=== PATIENT | female | born 1960 | race Caucasian/White ===

== ENCOUNTER 2017-09-21 14:28 | Emergency (ER) | payer MEDICAID, OTHER ==
[~2017-09-21] VITALS: Ht 170.2 cm; Wt 59.9 kg
[~2017-09-21 14:28] MED LIST: CLON-528 PO
[2017-09-21] MEDS ORDERED: thiamine 100mg/ml 2ml inj. IV ONE (14:50)
[2017-09-21] MEDS ORDERED: normal saline 1000ML IV soln IV ONE (14:50)
[2017-09-21] MEDS ORDERED: folic acid 1mg/0.2ml inj IV ONE (14:50)
[2017-09-21 15:17] LABS: BASOPHILS % (AUTO) 0.2 % (0-1); EOSINOPHILS # (AUTO) 0.1 X10'3 (0-0.9); EOSINOPHILS % (AUTO) 0.9 % (0-6); HEMATOCRIT 37.8 % (35.0-45.0); HEMOGLOBIN 12.8 g/dl (12.0-16.0); LYMPHOCYTES # (AUTO) 3.3 X10'3 (1.1-4.8); LYMPHOCYTES % (AUTO) 27.3 % (21-51); MEAN CORPUSCULAR VOLUME 94.2 FL (78-98); MEAN PLATELET VOLUME 6.9 FL (7.4-10.4); MONOCYTES # (AUTO) 0.8 X10'3 (0-0.9); MONOCYTES % (AUTO) 6.2 % (2-12); NEUTROPHILS % (AUTO) 65.4 % (42-75); PLATELET COUNT 434 X10'3 (140-440); RED BLOOD COUNT 4.01 X10'6 (4.20-5.60); RED CELL DISTRIBUTION WIDTH 15.3 % (11.5-14.5); WHITE BLOOD COUNT 12.3 X10'3 (4.5-11.0)
[2017-09-21] MEDS ORDERED: LORazepam 2 mg/ml vial IV ONE ×2 (15:25→16:45)
[2017-09-21 15:32] LABS: ALANINE AMINOTRANSFERASE 57 U/L (12-78); ALBUMIN 3.5 G/DL (3.4-5.0); ALBUMIN/GLOBULIN RATIO 0.9 (1.1-1.5); ALKALINE PHOSPHATASE 54 IU/L (46-116); ANION GAP 9 (8-16); ASPARTATE AMINO TRANSFERASE 39 U/L (10-37); BILIRUBIN,TOTAL 0.1 MG/DL (0.1-1.0); BLOOD UREA NITROGEN 11 MG/DL (7-18); BUN/CREATININE RATIO 15.5 (6.6-38.0); CALCIUM 9.1 MG/DL (8.5-10.1); CHLORIDE 107 MMOL/L (99-107); CREATINE KINASE 168 U/L (26-192); CREATININE 0.71 MG/DL (0.40-0.90); GLUCOSE 93 MG/DL (70-104); MAGNESIUM 2.1 MG/DL (1.5-2.4); POTASSIUM 4.2 MMOL/L (3.5-5.1); SODIUM 145 MMOL/L (135-145); TOTAL CARBON DIOXIDE 29.2 MMOL/L (24-32); TOTAL PROTEIN 7.3 G/DL (6.4-8.2); eGFR 85 ML/MIN
[2017-09-21 16:07] LABS: CLARITY,URINE CLEAR (Clear); COLOR,URINE YELLOW (Yellow); GLUCOSE, URINE NEGATIVE (Neg); KETONES,URINE NEGATIVE (Neg); LEUKOCYTE ESTERASE ,URINE NEGATIVE (Neg); NITRITES, URINE NEGATIVE (Neg); OCCULT BLOOD,URINE TRACE-INTACT (Neg); PROTEIN,URINE NEGATIVE (Neg); UROBILINOGEN,URINE 0.2 E.U/dL (0.2-1.0)
[2017-09-21 16:08] LABS: UA COLLECTION TYPE CLN CATCH MIDSTREAM
[2017-09-21 16:14] LABS: URINE AMPHETAMINE SCREEN NEGATIVE (Neg); URINE BARBITUATE SCREEN NEGATIVE (Neg); URINE BENZODIAZEPINES SCREEN NEGATIVE (Neg); URINE CANNABINOID SCREEN NEGATIVE (Neg); URINE COCAINE SCREEN NEGATIVE (Neg); URINE METHADONE SCREEN NEGATIVE (Neg); URINE OPIATE SCREEN NEGATIVE (Neg); URINE PHENCYCLIDINE SCREEN NEGATIVE (Neg)
[2017-09-21 16:16] LABS: ETHANOL 0.117 GM/DL (0.0-0.010)
[2017-09-21 16:17] LABS: BACTERIA,URINE NONE SEEN /HPF (Neg); RBC,URINE 0-2 /HPF (0-2); SQUAMOUS EPITHELIAL CELL,UR FEW /LPF (FEW); WBC,URINE 0-4 /HPF (0-4)
[2017-09-21 17:00] VITALS: BP 130/78
== END 2017-09-21 17:41 | disposition home or self-care (01) ==
LOC: ER 14:28
DX: F10.129 Alcohol abuse with intoxication, unspecified (principal); F13.10 Sedative, hypnotic or anxiolytic abuse, uncomplicated; Z79.899 Other long term (current) drug therapy; Y90.0 Blood alcohol level of less than 20 mg/100 ml
CPT/HCPCS: 36415; 80053; 80305; 80320; 81001; 82550; 82948; 83605; 83735; 85025; 93005; 96361; 96374; 96375; 96376; 99285; J2060; J3411; J3490; J7030

== ENCOUNTER 2017-09-29 14:49 | Emergency (ER) | payer OTHER ==
[~2017-09-29] VITALS: Ht 170.2 cm; Wt 58.0 kg
[2017-09-29 15:35] LABS: BASOPHILS % (AUTO) 0.5 % (0-1); EOSINOPHILS # (AUTO) 0.1 X10'3 (0-0.9); EOSINOPHILS % (AUTO) 0.8 % (0-6); HEMATOCRIT 40.1 % (35.0-45.0); HEMOGLOBIN 13.5 g/dl (12.0-16.0); LYMPHOCYTES # (AUTO) 3.1 X10'3 (1.1-4.8); LYMPHOCYTES % (AUTO) 29.9 % (21-51); MEAN CORPUSCULAR HEMOGLOBIN 31.5 PG (27.0-31.0); MEAN CORPUSCULAR HGB CONC 33.6 % (33.0-36.5); MEAN CORPUSCULAR VOLUME 93.7 FL (78-98); MEAN PLATELET VOLUME 6.9 FL (7.4-10.4); MONOCYTES # (AUTO) 0.9 X10'3 (0-0.9); NEUTROPHILS # (AUTO) 6.2 X10'3 (1.8-7.7); NEUTROPHILS % (AUTO) 59.8 % (42-75); PLATELET COUNT 385 X10'3 (140-440); RED BLOOD COUNT 4.28 X10'6 (4.20-5.60); RED CELL DISTRIBUTION WIDTH 16.4 % (11.5-14.5); WHITE BLOOD COUNT 10.3 X10'3 (4.5-11.0)
[2017-09-29] MEDS ORDERED: ondansetron/PF 4mg/2ml inj IV ONE (15:40)
[2017-09-29] MEDS ORDERED: normal saline 1000ML IV soln IVB ONE (15:40)
[2017-09-29] MEDS ORDERED: famotidine/PF 10 mg/ml inj IV ONE (15:40)
[2017-09-29] MEDS ORDERED: LORazepam 2 mg/ml vial IV ONE (15:40)
[2017-09-29 15:57] LABS: ANION GAP 8 (8-16); BLOOD UREA NITROGEN 17 MG/DL (7-18); BUN/CREATININE RATIO 26.6 (6.6-38.0); CHLORIDE 106 MMOL/L (99-107); CREATININE 0.64 MG/DL (0.40-0.90); GLUCOSE 77 MG/DL (70-104); POTASSIUM 4.2 MMOL/L (3.5-5.1); SODIUM 144 MMOL/L (135-145); TOTAL CARBON DIOXIDE 30.1 MMOL/L (24-32); eGFR > 90 ML/MIN
[2017-09-29 15:58] LABS: ALANINE AMINOTRANSFERASE 45 U/L (12-78); ALBUMIN 3.8 G/DL (3.4-5.0); ALKALINE PHOSPHATASE 71 IU/L (46-116); ASPARTATE AMINO TRANSFERASE 23 U/L (10-37); BILIRUBIN,TOTAL 0.2 MG/DL (0.1-1.0); CALCIUM 8.9 MG/DL (8.5-10.1); CREATINE KINASE 75 U/L (26-192); TOTAL PROTEIN 7.7 G/DL (6.4-8.2)
[2017-09-29 16:01] VITALS: BP 128/64
[2017-09-29] MEDS ORDERED: CHLO25CA10 PO (16:40)
== END 2017-09-29 17:17 | disposition home or self-care (01) ==
LOC: ER 14:50
DX: F10.239 Alcohol dependence with withdrawal, unspecified (principal); F17.200 Nicotine dependence, unspecified, uncomplicated; Y90.9 Presence of alcohol in blood, level not specified
CPT/HCPCS: 36415; 80053; 82550; 84484; 85025; 93005; 96361; 96374; 96375; 99285; J2060; J2405; J3490; J7030

== ENCOUNTER 2017-10-06 20:10 | Emergency (ER) | payer OTHER ==
[~2017-10-06] VITALS: Ht 5535.5 cm; Wt 64.6 kg
[~2017-10-06 20:10] MED LIST changes: +CHLO25CA10 PO
[2017-10-06] MEDS ORDERED: LORazepam 1 MG tablet PO ONE ×2 (22:00→22:05)
[2017-10-06 22:17] LABS: URINE HCG NEGATIVE (NEG)
[2017-10-06 22:20] LABS: COLOR,URINE Yellow (Yellow); GLUCOSE, URINE Negative (Neg); KETONES,URINE Negative (Neg); LEUKOCYTE ESTERASE ,URINE Small (Neg); NITRITES, URINE Negative (Neg); OCCULT BLOOD,URINE Small (Neg); PROTEIN,URINE Negative (Neg); UROBILINOGEN,URINE 0.2 E.U/dL (0.2-1.0)
[2017-10-06 22:21] LABS: URINE AMPHETAMINE SCREEN NEGATIVE (Neg); URINE BARBITUATE SCREEN NEGATIVE (Neg); URINE BENZODIAZEPINES SCREEN POSITIVE (Neg); URINE CANNABINOID SCREEN NEGATIVE (Neg); URINE COCAINE SCREEN NEGATIVE (Neg); URINE METHADONE SCREEN NEGATIVE (Neg); URINE OPIATE SCREEN NEGATIVE (Neg); URINE PHENCYCLIDINE SCREEN NEGATIVE (Neg)
[2017-10-06 22:22] LABS: CLARITY,URINE Slightly Cloudy (Clear); UA COLLECTION TYPE CLN CATCH MIDSTREAM
[2017-10-06 22:32] LABS: BACTERIA,URINE 2+ /HPF (Neg); MUCUS STRANDS MODERATE /LPF (Neg); RBC,URINE 0-2 /HPF (0-2); SQUAMOUS EPITHELIAL CELL,UR MANY /LPF (FEW); WBC,URINE 0-4 /HPF (0-4)
[2017-10-06 22:35] LABS: BASOPHILS % (AUTO) 0.3 % (0-1); EOSINOPHILS # (AUTO) 0.2 X10'3 (0-0.9); EOSINOPHILS % (AUTO) 1.7 % (0-6); HEMATOCRIT 37.8 % (35.0-45.0); HEMOGLOBIN 13.3 g/dl (12.0-16.0); LYMPHOCYTES # (AUTO) 3.7 X10'3 (1.1-4.8); LYMPHOCYTES % (AUTO) 34.2 % (21-51); MEAN CORPUSCULAR HEMOGLOBIN 32.9 PG (27.0-31.0); MEAN CORPUSCULAR HGB CONC 35.3 % (33.0-36.5); MEAN CORPUSCULAR VOLUME 93.3 FL (78-98); MONOCYTES # (AUTO) 0.9 X10'3 (0-0.9); MONOCYTES % (AUTO) 8.8 % (2-12); NEUTROPHILS # (AUTO) 5.9 X10'3 (1.8-7.7); PLATELET COUNT 336 X10'3 (140-440); RED BLOOD COUNT 4.05 X10'6 (4.20-5.60); WHITE BLOOD COUNT 10.7 X10'3 (4.5-11.0)
[2017-10-06 22:46] LABS: ETHANOL 0.048 GM/DL (0.0-0.010); TOTAL CARBON DIOXIDE 32.5 MMOL/L (24-32)
[2017-10-06 23:18] LABS: ALANINE AMINOTRANSFERASE 53 U/L (12-78); ALBUMIN 3.6 G/DL (3.4-5.0); ALBUMIN/GLOBULIN RATIO 0.9 (1.1-1.5); ALKALINE PHOSPHATASE 83 IU/L (46-116); ANION GAP 7 (8-16); ASPARTATE AMINO TRANSFERASE 54 U/L (10-37); BILIRUBIN,TOTAL 0.1 MG/DL (0.1-1.0); BLOOD UREA NITROGEN 16 MG/DL (7-18); BUN/CREATININE RATIO 24.2 (6.6-38.0); CALCIUM 8.5 MG/DL (8.5-10.1); CHLORIDE 104 MMOL/L (99-107); CREATININE 0.66 MG/DL (0.40-0.90); GLUCOSE 87 MG/DL (70-104); SODIUM 143 MMOL/L (135-145); TOTAL PROTEIN 7.4 G/DL (6.4-8.2); eGFR > 90 ML/MIN
[2017-10-06 23:20] LABS: POTASSIUM 3.7 MMOL/L (3.5-5.1)
[2017-10-07] MEDS ORDERED: chlordiazePOXIDE 25mg capsule PO ONE (05:25)
[2017-10-07] MEDS ORDERED: LORazepam 2 mg/ml vial IV PRN (08:20)
[2017-10-07] MEDS ORDERED: folic acid 1mg tablet PO ONE (08:25)
[2017-10-07] MEDS ORDERED: LORazepam 2 mg/ml vial IM PRN (08:53)
[2017-10-07] MEDS: multivitamins, therapeutics tablet PO SCH (09:02)
[2017-10-07] MEDS: LORazepam 0.5 MG tablet PO PRN ×3 (09:03→17:28)
[2017-10-07] MEDS: PARoxetine 20mg tablet PO SCH (12:12)
[2017-10-07] MEDS ORDERED: ziprasidone IM 20mg inj **IM only IM ONE (19:50)
[2017-10-08] MEDS: PARoxetine 20mg tablet PO SCH (07:48)
[2017-10-08] MEDS: multivitamins, therapeutics tablet PO SCH (07:48)
[2017-10-08] MEDS: LORazepam 0.5 MG tablet PO PRN ×2 (07:50→12:34)
[2017-10-08] MEDS ORDERED: nicotine prolacrilex 2mg gum BC PRN (08:05)
[2017-10-08] MEDS: docusate sod 100mg capsule PO PRN (08:38)
[2017-10-08] MEDS ORDERED: ziprasidone 20mg capsule PO ONE (19:40)
[2017-10-09] MEDS: multivitamins, therapeutics tablet PO SCH (07:17)
[2017-10-09] MEDS: PARoxetine 20mg tablet PO SCH (07:18)
[2017-10-09] MEDS: docusate sod 100mg capsule PO PRN (07:18)
[2017-10-09] MEDS: LORazepam 0.5 MG tablet PO PRN ×3 (07:19→20:31)
[2017-10-09] MEDS ORDERED: CLON-527 PO (10:07)
[2017-10-09] MEDS ORDERED: PARO10TA85 PO (10:07)
[2017-10-09] MEDS ORDERED: ZOLP5TAB2 PO (10:17)
[2017-10-09] MEDS ORDERED: acetaminophen w/codeine (30MG) #3 tablet PO PRN (16:40)
[2017-10-09] MEDS: clonazePAM 0.5mg tablet PO SCH (20:30)
[2017-10-09] MEDS: zolpidem 5mg tablet PO PRN (20:31)
[2017-10-10] MEDS: LORazepam 0.5 MG tablet PO PRN (05:24)
[2017-10-10] MEDS: clonazePAM 0.5mg tablet PO SCH ×2 (08:10→20:30)
[2017-10-10] MEDS: multivitamins, therapeutics tablet PO SCH (08:10)
[2017-10-10] MEDS: PARoxetine 20mg tablet PO SCH (08:10)
[2017-10-10] MEDS: magnesium hydroxide 30ml (MOM) UD suspension PO PRN ×2 (08:10→18:17)
[2017-10-10] MEDS: chlordiazePOXIDE 25mg capsule PO SCH ×2 (13:27→20:31)
[2017-10-10] MEDS: docusate sod 100mg capsule PO PRN (13:28)
[2017-10-10] MEDS: zolpidem 5mg tablet PO PRN (20:31)
[2017-10-10] MEDS ORDERED: chlordiazePOXIDE 25mg capsule PO ONE (21:00)
[2017-10-11] MEDS: docusate sod 100mg capsule PO PRN ×2 (07:34→20:14)
[2017-10-11] MEDS: PARoxetine 20mg tablet PO SCH (07:34)
[2017-10-11] MEDS: clonazePAM 0.5mg tablet PO SCH ×2 (07:34→20:14)
[2017-10-11] MEDS: magnesium hydroxide 30ml (MOM) UD suspension PO PRN ×2 (07:34→20:14)
[2017-10-11] MEDS: multivitamins, therapeutics tablet PO SCH (07:35)
[2017-10-11] MEDS ORDERED: polyethylene glycol 3350 17gm powd pack PO PRN (07:55)
[2017-10-11] MEDS: LORazepam 1 MG tablet PO PRN ×3 (08:16→21:39)
[2017-10-11] MEDS ORDERED: clonazePAM 1mg tablet PO ONE (12:25)
[2017-10-11] MEDS: zolpidem 5mg tablet PO PRN (20:14)
[2017-10-12] MEDS: LORazepam 1 MG tablet PO PRN ×2 (06:39→12:05)
[2017-10-12] MEDS: docusate sod 100mg capsule PO PRN (08:11)
[2017-10-12] MEDS: PARoxetine 20mg tablet PO SCH (08:11)
[2017-10-12] MEDS: clonazePAM 0.5mg tablet PO SCH (08:11)
[2017-10-12] MEDS: multivitamins, therapeutics tablet PO SCH (08:11)
[2017-10-12] MEDS: magnesium hydroxide 30ml (MOM) UD suspension PO PRN (08:11)
[2017-10-12] MEDS ORDERED: nicotine 7mg patch - 24hr TD SCH (09:55)
[2017-10-12] MEDS ORDERED: LORazepam 1 MG tablet PO ONE (15:15)
[2017-10-12] MEDS: zolpidem 5mg tablet PO PRN (20:30)
[2017-10-12] MEDS: clonazePAM 1mg tablet PO SCH (20:30)
[2017-10-13] MEDS: LORazepam 1 MG tablet PO PRN ×2 (05:54→12:17)
[2017-10-13] MEDS: clonazePAM 1mg tablet PO SCH ×2 (07:28→21:00)
[2017-10-13] MEDS: PARoxetine 20mg tablet PO SCH (07:28)
[2017-10-13] MEDS: multivitamins, therapeutics tablet PO SCH (07:28)
[2017-10-13] MEDS: nicotine 14mg patch - 24hr TD SCH (12:14)
[2017-10-13] MEDS ORDERED: clonazePAM 1mg tablet PO ONE (14:05)
[2017-10-13] MEDS: zolpidem 5mg tablet PO PRN (20:53)
[2017-10-14] MEDS: multivitamins, therapeutics tablet PO SCH (08:01)
[2017-10-14] MEDS: clonazePAM 1mg tablet PO SCH ×2 (08:01→12:50)
[2017-10-14] MEDS: nicotine 14mg patch - 24hr TD SCH (08:02)
[2017-10-14] MEDS: PARoxetine 20mg tablet PO SCH (08:08)
[2017-10-14 15:19] VITALS: BP 105/72
== END 2017-10-14 15:22 ==
LOC: ER 20:11
DX: R45.851 Suicidal ideations (principal); F10.239 Alcohol dependence with withdrawal, unspecified; F17.210 Nicotine dependence, cigarettes, uncomplicated; F41.9 Anxiety disorder, unspecified; F32.9 Major depressive disorder, single episode, unspecified; Z79.899 Other long term (current) drug therapy
CPT/HCPCS: 36415; 80053; 80305; 80320; 81001; 81025; 84443; 85025; 96372; 99285; J3486; 99284

== ENCOUNTER 2017-11-21 11:57 | Emergency (ER) | payer OTHER ==
[~2017-11-21] VITALS: Ht 170.2 cm; Wt 68.0 kg
[~2017-11-21 11:57] MED LIST changes: -CHLO25CA10 PO; +CLON-527 PO; -CLON-528 PO; +PARO10TA85 PO; +ZOLP5TAB2 PO
[2017-11-21 13:58] LABS: BASOPHILS # (AUTO) 0.1 X10'3 (0-0.2); BASOPHILS % (AUTO) 0.6 % (0-1); EOSINOPHILS # (AUTO) 0.3 X10'3 (0-0.9); EOSINOPHILS % (AUTO) 2.4 % (0-6); HEMATOCRIT 44.1 % (35.0-45.0); HEMOGLOBIN 14.9 g/dl (12.0-16.0); LYMPHOCYTES # (AUTO) 2.3 X10'3 (1.1-4.8); LYMPHOCYTES % (AUTO) 20.9 % (21-51); MEAN CORPUSCULAR HEMOGLOBIN 30.8 PG (27.0-31.0); MEAN CORPUSCULAR HGB CONC 33.7 % (33.0-36.5); MEAN CORPUSCULAR VOLUME 91.5 FL (78-98); MEAN PLATELET VOLUME 7.3 FL (7.4-10.4); MONOCYTES # (AUTO) 0.6 X10'3 (0-0.9); MONOCYTES % (AUTO) 5.6 % (2-12); NEUTROPHILS # (AUTO) 7.8 X10'3 (1.8-7.7); NEUTROPHILS % (AUTO) 70.5 % (42-75); PLATELET COUNT 248 X10'3 (140-440); RED BLOOD COUNT 4.82 X10'6 (4.20-5.60); RED CELL DISTRIBUTION WIDTH 14.4 % (11.5-14.5); WHITE BLOOD COUNT 11.1 X10'3 (4.5-11.0)
[2017-11-21 14:33] LABS: URINE HCG NEGATIVE (NEG)
[2017-11-21 14:45] LABS: CLARITY,URINE CLEAR (Clear); COLOR,URINE YELLOW (Yellow); GLUCOSE, URINE NEGATIVE (Neg); KETONES,URINE NEGATIVE (Neg); LEUKOCYTE ESTERASE ,URINE NEGATIVE (Neg); NITRITES, URINE NEGATIVE (Neg); OCCULT BLOOD,URINE TRACE-LYSED (Neg); PH,URINE 6.5 (4.8-8.0); PROTEIN,URINE NEGATIVE (Neg); URINE AMPHETAMINE SCREEN NEGATIVE (Neg); URINE BARBITUATE SCREEN NEGATIVE (Neg); URINE BENZODIAZEPINES SCREEN NEGATIVE (Neg); URINE CANNABINOID SCREEN NEGATIVE (Neg); URINE COCAINE SCREEN NEGATIVE (Neg); URINE METHADONE SCREEN NEGATIVE (Neg); URINE OPIATE SCREEN NEGATIVE (Neg); URINE PHENCYCLIDINE SCREEN NEGATIVE (Neg); UROBILINOGEN,URINE 0.2 E.U/dL (0.2-1.0)
[2017-11-21 14:55] LABS: UA COLLECTION TYPE CLN CATCH MIDSTREAM
[2017-11-21 14:56] LABS: BACTERIA,URINE NONE SEEN /HPF (Neg); MUCUS STRANDS FEW /LPF (Neg); RBC,URINE 0-2 /HPF (0-2); SQUAMOUS EPITHELIAL CELL,UR FEW /LPF (FEW); WBC,URINE NONE SEEN /HPF (0-4)
[2017-11-21 16:03] LABS: ALANINE AMINOTRANSFERASE 51 U/L (12-78); ALBUMIN 3.5 G/DL (3.4-5.0); ALBUMIN/GLOBULIN RATIO 0.9 (1.1-1.5); ALKALINE PHOSPHATASE 64 IU/L (46-116); ANION GAP 6 (8-16); ASPARTATE AMINO TRANSFERASE 25 U/L (10-37); BILIRUBIN,TOTAL 0.2 MG/DL (0.1-1.0); BLOOD UREA NITROGEN 23 MG/DL (7-18); BUN/CREATININE RATIO 28.8 (6.6-38.0); CALCIUM 8.8 MG/DL (8.5-10.1); CHLORIDE 107 MMOL/L (99-107); GLUCOSE 119 MG/DL (70-104); SODIUM 145 MMOL/L (135-145); TOTAL CARBON DIOXIDE 32.2 MMOL/L (24-32); TOTAL PROTEIN 7.3 G/DL (6.4-8.2); eGFR 74 ML/MIN
[2017-11-21 16:04] LABS: ETHANOL < 0.010 GM/DL (0.0-0.010)
[2017-11-21 16:45] LABS: ACETAMINOPHEN < 2.0 UG/ML (10-30)
[2017-11-21] MEDS ORDERED: acetaminophen 325mg tablet PO ONE (17:05)
[2017-11-22] MEDS ORDERED: cyclobenzaprine 10mg tablet PO ONE (05:20)
[2017-11-22] MEDS ORDERED: dexamethasone 4mg tablet PO ONE (05:20)
[2017-11-22] MEDS: clonazePAM 1mg tablet PO SCH ×2 (09:25→13:22)
[2017-11-22] MEDS ORDERED: PARoxetine 10mg tablet PO ONE (09:35)
[2017-11-22] MEDS ORDERED: HYDROcodone/acetaminophen 5mg/325mg tablet PO ONE (13:15)
[2017-11-22] MEDS: HYDROcodone/acetaminophen 10/325mg tab PO PRN (20:27)
[2017-11-22] MEDS: zolpidem 5mg tablet PO PRN (20:28)
[2017-11-23] MEDS: HYDROcodone/acetaminophen 10/325mg tab PO PRN ×3 (04:17→16:13)
[2017-11-23] MEDS: clonazePAM 1mg tablet PO SCH ×2 (07:33→13:39)
[2017-11-23] MEDS: PARoxetine 10mg tablet PO SCH (07:33)
[2017-11-23] MEDS: zolpidem 5mg tablet PO PRN (20:45)
[2017-11-24] MEDS: HYDROcodone/acetaminophen 10/325mg tab PO PRN ×3 (04:17→16:02)
[2017-11-24] MEDS: PARoxetine 10mg tablet PO SCH (07:39)
[2017-11-24] MEDS: clonazePAM 1mg tablet PO SCH ×2 (07:39→13:12)
[2017-11-24] MEDS: zolpidem 5mg tablet PO PRN (20:28)
[2017-11-25] MEDS: HYDROcodone/acetaminophen 10/325mg tab PO PRN ×2 (02:19→08:07)
[2017-11-25 05:51] VITALS: BP 122/74
[2017-11-25] MEDS ORDERED: clonazePAM 0.5mg tablet PO SCH (07:30)
[2017-11-25] MEDS: PARoxetine 10mg tablet PO SCH (08:07)
[2017-11-25] MEDS ORDERED: polyethylene glycol 3350 17gm powd pack PO SCH (08:20)
== END 2017-11-25 11:20 ==
LOC: ER 11:58
DX: R45.851 Suicidal ideations (principal); F41.9 Anxiety disorder, unspecified; F17.210 Nicotine dependence, cigarettes, uncomplicated; F32.9 Major depressive disorder, single episode, unspecified; Z79.899 Other long term (current) drug therapy
CPT/HCPCS: 36415; 80053; 80305; 80320; 80329; 81001; 81025; 84443; 85025; 99285; J8540

== ENCOUNTER 2017-12-15 02:03 | Emergency (ER) | payer MEDICAID, OTHER ==
[~2017-12-15] VITALS: Ht 170.2 cm; Wt 71.6 kg
[2017-12-15] MEDS ORDERED: LORazepam 2 mg/ml vial IV ONE (02:45)
[2017-12-15] MEDS ORDERED: normal saline 1000ml 1,000 ML IV ONE (02:45)
[2017-12-15 03:15] LABS: BASOPHILS % (AUTO) 0.5 % (0-1); EOSINOPHILS # (AUTO) 0.1 X10'3 (0-0.9); EOSINOPHILS % (AUTO) 1.4 % (0-6); HEMATOCRIT 41.3 % (35.0-45.0); HEMOGLOBIN 13.9 g/dl (12.0-16.0); LYMPHOCYTES % (AUTO) 34.7 % (21-51); MEAN CORPUSCULAR HEMOGLOBIN 30.7 PG (27.0-31.0); MEAN CORPUSCULAR HGB CONC 33.6 % (33.0-36.5); MEAN CORPUSCULAR VOLUME 91.4 FL (78-98); MEAN PLATELET VOLUME 6.8 FL (7.4-10.4); MONOCYTES # (AUTO) 0.6 X10'3 (0-0.9); MONOCYTES % (AUTO) 6.6 % (2-12); NEUTROPHILS # (AUTO) 4.9 X10'3 (1.8-7.7); NEUTROPHILS % (AUTO) 56.8 % (42-75); PLATELET COUNT 346 X10'3 (140-440); RED BLOOD COUNT 4.52 X10'6 (4.20-5.60); RED CELL DISTRIBUTION WIDTH 13.6 % (11.5-14.5); WHITE BLOOD COUNT 8.7 X10'3 (4.5-11.0)
[2017-12-15 03:48] LABS: ALANINE AMINOTRANSFERASE 47 U/L (12-78); ALBUMIN 3.6 G/DL (3.4-5.0); ALBUMIN/GLOBULIN RATIO 0.9 (1.1-1.5); ALKALINE PHOSPHATASE 64 IU/L (46-116); ANION GAP 8 (8-16); ASPARTATE AMINO TRANSFERASE 38 U/L (10-37); BILIRUBIN,TOTAL 0.2 MG/DL (0.1-1.0); BLOOD UREA NITROGEN 21 MG/DL (7-18); BUN/CREATININE RATIO 26.6 (6.6-38.0); CALCIUM 8.5 MG/DL (8.5-10.1); CHLORIDE 106 MMOL/L (99-107); CREATININE 0.79 MG/DL (0.40-0.90); ETHANOL 0.014 GM/DL (0.0-0.010); GLUCOSE 107 MG/DL (70-104); LIPASE 159 U/L (73-393); POTASSIUM 3.7 MMOL/L (3.5-5.1); SODIUM 143 MMOL/L (135-145); TOTAL CARBON DIOXIDE 28.7 MMOL/L (24-32); TOTAL PROTEIN 7.6 G/DL (6.4-8.2); eGFR 75 ML/MIN
[2017-12-15 03:56] LABS: ACETAMINOPHEN < 2.0 UG/ML (10-30)
[2017-12-15] MEDS ORDERED: chlordiazePOXIDE 25mg capsule PO ONE (04:10)
[2017-12-15] MEDS ORDERED: CHLO25CA10 PO (04:14)
[2017-12-15 04:38] LABS: CLARITY,URINE CLOUDY (Clear); COLOR,URINE YELLOW (Yellow); GLUCOSE, URINE NEGATIVE (Neg); KETONES,URINE TRACE mg/dl (Neg); LEUKOCYTE ESTERASE ,URINE NEGATIVE (Neg); NITRITES, URINE NEGATIVE (Neg); OCCULT BLOOD,URINE TRACE-INTACT (Neg); PH,URINE 5.5 (4.8-8.0); PROTEIN,URINE NEGATIVE (Neg); UA COLLECTION TYPE CLN CATCH MIDSTREAM; UROBILINOGEN,URINE 0.2 E.U/dL (0.2-1.0)
[2017-12-15 04:46] LABS: URINE AMPHETAMINE SCREEN NEGATIVE (Neg); URINE BARBITUATE SCREEN NEGATIVE (Neg); URINE BENZODIAZEPINES SCREEN NEGATIVE (Neg); URINE CANNABINOID SCREEN NEGATIVE (Neg); URINE COCAINE SCREEN NEGATIVE (Neg); URINE METHADONE SCREEN NEGATIVE (Neg); URINE OPIATE SCREEN NEGATIVE (Neg); URINE PHENCYCLIDINE SCREEN NEGATIVE (Neg)
[2017-12-15 04:48] LABS: BACTERIA,URINE 3+ /HPF (Neg); MUCUS STRANDS MANY /LPF (Neg); RBC,URINE 0-2 /HPF (0-2); WBC,URINE 0-4 /HPF (0-4)
[2017-12-15 04:49] LABS: SQUAMOUS EPITHELIAL CELL,UR MANY /LPF (FEW)
[2017-12-15 04:50] LABS: HYALINE CASTS 0-3 /LPF (NEGATIVE)
[2017-12-15 04:52] VITALS: BP 128/86
== END 2017-12-15 04:45 | disposition home or self-care (01) ==
LOC: ER 02:04
DX: F10.239 Alcohol dependence with withdrawal, unspecified (principal); F17.200 Nicotine dependence, unspecified, uncomplicated
CPT/HCPCS: 36415; 80053; 80305; 80320; 80329; 81001; 83690; 85025; 96361; 96374; 99284; J2060; J7030

== ENCOUNTER 2018-01-07 13:51 | Emergency (ER) | payer MEDICAID ==
[~2018-01-07] VITALS: Ht 170.2 cm; Wt 65.0 kg
[~2018-01-07 13:51] MED LIST changes: +CHLO25CA10 PO; -CLON-527 PO; -ZOLP5TAB2 PO
[2018-01-07 13:52] VITALS: BP 133/86
[2018-01-07] MEDS ORDERED: GABA-532 PO (14:24)
[2018-01-07] MEDS ORDERED: ONDA4TAB9 SL (14:24)
== END 2018-01-07 14:34 | disposition home or self-care (01) ==
LOC: ER 13:51
DX: F10.230 Alcohol dependence with withdrawal, uncomplicated (principal); Z56.0 Unemployment, unspecified; Z79.899 Other long term (current) drug therapy; Y90.9 Presence of alcohol in blood, level not specified
CPT/HCPCS: 99283; 99284